=== PATIENT | female | born 1955 | race Caucasian/White ===

== ENCOUNTER 2018-12-18 13:39 | Outpatient (CLI) ==
[2015-03-22 07:50] VITALS: BMI 24.3
--- NOTE | 2018-12-18 14:31 | DI ---
EXAM: PA and lateral views of the chest HISTORY: Pneumonia COMPARISON: Chest x-ray 12/03/[address] chest 03/11/2013 FINDINGS: The cardiomediastinal silhouette is normal. There is no pneumothorax or pleural effusion. There is no consolidation, nodule or mass. The osseous structures demonstrate postsurgical changes in the left humerus. IMPRESSION: No acute cardiopulmonary process
== END 2018-12-18 13:40 | disposition home or self-care (01) ==
LOC: RAD 13:39
PROVIDERS: ATTEND Family Medicine
DX: J18.9 Pneumonia, unspecified organism (principal)

== ENCOUNTER 2019-02-15 19:29 | Outpatient (CLI) ==
[2019-02-15 19:41] VITALS: BMI 25.9
== END 2019-02-15 19:33 | disposition critical access hospital (66) ==
LOC: AMBL 19:29
PROVIDERS: ATTEND Emergency Medicine
DX: S61.451A Open bite of right hand, initial encounter (principal); S80.871A Other superficial bite, right lower leg, initial encounter; R00.0 Tachycardia, unspecified; R03.0 Elevated blood-pressure reading, without diagnosis of hypertension

== ENCOUNTER 2019-02-15 19:37 | Emergency (ER) ==
[2019-02-15 19:41] VITALS: BP 153/103; TEMP 97.9; BMI 25.9
--- NOTE | 2019-02-15 19:44 | ED.PDOC ---
General ED Provider: Dr. 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 He is holding and observing a dog for initial 1o days.Bites are on a r hand and right calf area.Ther are superficial,Chosen treatnebt is to leaVE THEM OPEN UNDER LIGHT DRESSING WITH PREP,IRRIGATION AND ANTIBIOTIC OINTMENT.Follow with PCP in 2 days to chjeck the bite areas,Augmentin 875/125 mg bid x 10 days.Tetanus imunzation booster.Tylenol OTC.Elevate for rest. Time Seen by Physician: 19:45 Mode of Arrival: Walk-In Information Source: Patient Exam Limitations: No limitations Primary Care Provider: LUCIANA STANLEY Nursing and Triage Documentation Reviewed and Agree: Yes Does patient meet sepsis criteria?: Yes If yes, has appropriate treatment been initiated?: Yes System Inflammatory Response Syndrome: Not Applicable Sepsis Protocol: For patient's 13 years and over: Temp is 96.8 and below OR 101 and greater Pulse >90 BPM Resp >20/minute Acutely Altered Mental Status Are patient's symptoms suggestive of a new infection, such as: -Pneumonia -Skin, Soft Tissue -Endocarditis -UTI -Bone, Joint Infection -Implantable Device -Acute Abdominal Infection -Wound Infection -Meningitis -Blood Stream Catheter Infection -Unknown Musculoskeletal Complaint Exam - Hand/Wrist Complaint/Exam Onset/Duration: right hand and calf superficial domestic dog bites. Symptoms Are: Still present Onset of Pain: Reports: Immediate Initial Severity: Mild Current Severity: Mild Location: Reports: Discrete Alleviating: Reports: Elevation Aggravating: Reports: None Associated Signs and Symptoms: Reports: Bruising Dominant Hand: Right Related Surgical History: Reports: None Hand/Wrist Findings: Present: Laceration Differential Diagnoses: Abrasion, Puncture Wound, Sprain Review of Systems - Review Of Systems Constitutional: Reports: No symptoms Eyes: Reports: No symptoms Ears, Nose, Mouth, Throat: Reports: No symptoms Respiratory: Reports: No symptoms Cardiac: Reports: No symptoms GI: Reports: No symptoms : Reports: No symptoms Musculoskeletal: Reports: Other Skin: Reports: Bruising Neurological: Reports: No symptoms Endocrine: Reports: No symptoms Hematologic/Lymphatic: Reports: No symptoms All Other Systems: Reviewed and Negative Past Medical History - Past Medical History Endocrine: Reports: None Cardiovascular: Reports: None Respiratory: Reports: None Hematological: Reports: None Gastrointestinal: Reports: None Genitourinary: Reports: None Neuro/Psych: Reports: None Musculoskeletal: Reports: Other Cancer: Reports: None Last Menstrual Period: N/A - Surgical History General Surgical History: Reports: None - Family History Family History: Reports: None - Social History Smoking Status: Never smoker Hx Substance Use: No Alcohol Screening: Occasionally - Immunizations Tetanus Shot up to Date: No Physical Exam - Physical Exam Appearance: Well-appearing Ill-appearing: None Pain Distress: Mild Eyes: DEBI ENT: Ears normal, Nose normal, Oropharynx normal Neck: Supple Respiratory: Airway patent Cardiovascular: RRR, Pulses normal, No rub GI/: Soft, Nontender, No masses Musculoskeletal: Normal strength, ROM intact Skin: Dry, Normal color Neurological: Sensation intact Psychiatric: Affect appropriate Critical Care Note - Critical Care Note Total Time (mins): 0 Course - Course Orders, Labs, Meds: Orders Category Date Time Status Tetanus and Diphtheria Tox/Pf [Tenivac] MEDS 02/15/19 20:23 Once 0.5 ml IM .ONCE ONE Medications Discontinued Medications Generic Name Dose Route Start Last Admin Trade Name Freq PRN Reason Stop Dose Admin Tetanus/Diphtheria Toxoids Adsorbed 0.5 ml 02/15/19 20:23 Tenivac IM 02/15/19 20:24 .ONCE ONE Vital Signs: Temp Pulse Resp BP Pulse Ox 02/15/19 19:38 97.9 F 99 H 18 153/103 H 97 Departure - Departure Time of Disposition: 20:24 Disposition: HOME SELF-CARE Discharge Problem: Dog bite Instructions: Animal Bite (ED) Condition: Good Pt referred to PMD for follow-up: Yes IPMP verified?: No Additional Instructions: Augmentin 875/125 bid x 10 days.Dressing change 2 days at the office. Allergies/Adverse Reactions: Allergies No Known Allergies Allergy (Verified 02/15/19 19:41) Home Medications: Ambulatory Orders Alprazolam [Xanax] 0.5 mg PO PRN 01/07/15 Dexlansoprazole [Dexilant] 60 mg PO PRN 01/07/15 Escitalopram Oxalate 20 mg PO DAILY 01/07/15 Fluticasone Propionate 16 gm NS DAILY PRN 01/07/15 Levothyroxine Sodium 75 mcg PO DAILY 01/07/15 Simvastatin 20 mg PO DAILY 01/07/15 Disposition Discussed With: Patient, Family
[2019-02-15] MEDS ORDERED: TENIVAC IM ONE (20:23)
== END 2019-02-15 20:45 | disposition home or self-care (01) ==
LOC: ED 19:37
DX: S61.451A Open bite of right hand, initial encounter (principal); S81.851A Open bite, right lower leg, initial encounter; W54.0XXA Bitten by dog, initial encounter
CPT/HCPCS: 90471; 90714; 99283